=== PATIENT | male | born 1965 | race American Indian/Alaskan Native ===

== ENCOUNTER 2022-02-17 16:19 | Emergency (ER) | payer MEDICAID ==
[2022-02-17] MEDS ORDERED: HYDROcodone/ACETAMINOPHEN 7.5-325MG TAB PO ONE ×2 (17:59→21:00)
[2022-02-17] MEDS ORDERED: IBUPROFEN 600 MG TAB PO ONE ×2 (17:59→21:00)
[2022-02-17] MEDS ORDERED: ONDANSETRON 4 MG ODT TAB PO ONE ×2 (17:59→21:00)
[2022-02-17] MEDS ORDERED: predniSONE 20 MG TAB PO ONE ×2 (17:59→21:00)
--- NOTE | 2022-02-17 18:59 | Emergency Department Report ---
ED Back Pain/Injury HPI - General Chief Complaint: Back Pain/Injury Stated Complaint: BACK PAIN Source: patient Limitations: No Limitations - History of Present Illness Initial Comments: Patient is a 56-year-old -[place] male with a history of hypertension and hyperlipidemia who presents to the ED with acute onset persistent nontraumatic low back pain for the last 1 week. Patient states that the pain is constant and persistent and especially worse with movement. Patient describes the pain as spasmic and sometimes radiate to his lower extremities bilaterally. Patient denies fall, traumatic injury, heavy lifting, nausea and vomiting, dysuria, urinary frequency or urgency, penile discharge, testicular pain, numbness and tingling or weakness of lower extremities bilaterally, change in vi judy, chest pain or shortness of breath. MD Complaint: back pain (Low back pain) -: Sudden, week(s) (1) Similar Symptoms Previously: No Place: home Radiation: left leg, right leg Severity: severe Severity scale (0 -10): 7 Quality: sharp, aching Consistency: constant Improves With: other (Rest) Worsens With: movement, supine, walking Context: unknown Associated Symptoms: denies other symptoms, difficulty walking. denies: confusion, weakness, chest pain, numbness, cough, difficulty urinating, diaphoresis, incontinence, fever/chills, constipation, headaches, abdominal pain, loss of appetite, malaise, nausea/vomiting, seizure, shortness of breath, syncope, other Treatments Prior to Arrival: acetaminophen - Related Data Previous Rx's Medication Instructions Recorded Last Taken Type Ibuprofen [Motrin] 800 mg PO Q8HR PRN #30 tablet 02/17/22 Unknown Rx methOCARBAMOL [Robaxin TAB] 750 mg PO Q8H PRN #30 tab 02/17/22 Unknown Rx predniSONE [Deltasone] 60 mg PO QDAY #15 tab 02/17/22 Unknown Rx traMADoL [Ultram] 50 mg PO Q6HR PRN #12 tablet 02/17/22 Unknown Rx Allergies Allergy/AdvReac Type Severity Reaction Status Date / Time No Known Allergies Allergy Verified 02/17/22 16:40 ED Review of Systems ROS: Stated complaint: BACK PAIN Other details as noted in HPI Constitutional: denies: chills, fever Eyes: denies: eye pain, eye discharge, vision change ENT: denies: ear pain, throat pain Respiratory: denies: cough, shortness of breath, wheezing Cardiovascular: denies: chest pain, palpitations Endocrine: no symptoms reported Gastrointestinal: denies: abdominal pain, nausea, diarrhea Genitourinary: denies: urgency, dysuria, frequency, hematuria, testicular pain, testicular mass Musculoskeletal: back pain (Low back pain), arthralgia. denies: joint swelling Skin: denies: rash, lesions Neurological: denies: headache, weakness, paresthesias Psychiatric: denies: anxiety, depression Hematological/Lymphatic: denies: easy bleeding, easy bruising ED Past Medical Hx - Past Medical History Hx Hypertension: Yes Additional medical history: Hyperlipidemia - Medications Home Medications: Home Medications Medication Instructions Recorded Confirmed Last Taken Type Ibuprofen [Motrin] 800 mg PO Q8HR PRN #30 tablet 02/17/22 Unknown Rx methOCARBAMOL [Robaxin TAB] 750 mg PO Q8H PRN #30 tab 02/17/22 Unknown Rx predniSONE [Deltasone] 60 mg PO QDAY #15 tab 02/17/22 Unknown Rx traMADoL [Ultram] 50 mg PO Q6HR PRN #12 tablet 02/17/22 Unknown Rx ED Physical Exam - General Limitations: No Limitations General appearance: alert, in no apparent distress - Head Head exam: Present: atraumatic, normocephalic, normal inspection - Eye Eye exam: Present: normal appearance, PERRL, EOMI Pupils: Present: normal accommodation - ENT ENT exam: Present: normal exam, normal orophraynx, mucous membranes moist, TM's normal bilaterally, normal external ear exam - Neck Neck exam: Present: normal inspection, full ROM - Respiratory Respiratory exam: Present: normal lung sounds bilaterally. Absent: respiratory distress, wheezes, rhonchi, stridor, chest wall tenderness, accessory muscle use, decreased breath sounds, other - Cardiovascular Cardiovascular Exam: Present: regular rate, normal rhythm, normal heart sounds. Absent: systolic murmur, diastolic murmur, rubs, gallop - GI/Abdominal GI/Abdominal exam: Present: soft, normal bowel sounds. Absent: tenderness, guarding, rebound, hyperactive bowel sounds, hypoactive bowel sounds - Extremities Exam Extremities exam: Present: normal inspection, full ROM, normal capillary refill. Absent: tenderness - Back Exam Back exam: Present: normal inspection, full ROM, tenderness (Palpable lumbosacral paraspinal musculoskeletal tenderness), muscle spasm, paraspinal tenderness. Absent: CVA tenderness (R), CVA tenderness (L), vertebral tenderness - Neurological Exam Neurological exam: Present: alert, oriented X3, CN II-XII intact, normal gait, reflexes normal - Psychiatric Psychiatric exam: Present: normal affect, normal mood - Skin Skin exam: Present: warm, dry, intact, normal color. Absent: rash ED Course Vital Signs 02/17/22 16:36 Temperature 98.5 F Pulse Rate 86 Respiratory 16 Rate Blood Pressure 147/80 O2 Sat by Pulse 99 Oximetry ED Medical Decision Making - Medical Decision Making This is a 56-year-old -[place] male with a history of hypertension and hyperlipidemia who presents to the ED with acute onset persistent nontraumatic low back pain for the last 1 week. Patient states that the pain is constant and persistent and especially worse with movement. Patient describes the pain as spasmic and sometimes radiate to his lower extremities bilaterally. In the ED, patient is alert and oriented x3 and is not in any distress but appears to be in pain. Patient is hemodynamically stable. Patient was treated for pain in the ED since the pain that the patient experiences is nontraumatic but musculoskeletal. Patient was discharged home on pain medications and advised to follow-up with his primary care physician in 7 to 10 days for reevaluation or return to the ED immediately if symptoms get worse. - Differential Diagnosis Muscle spasm; muscle strain; lumbar radiculopathy; lumbosacral strain Critical care attestation.: If time is entered above; I have spent that time in minutes in the direct care of this critically ill patient, excluding procedure time. ED Disposition Clinical Impression: Spasm of muscle of lower back Acute low back pain with sciatica Qualifiers: Back pain laterality: unspecified Sciatica laterality: bilateral sciatica Qualified Code(s): M54.42 - Lumbago with sciatica, left side; M54.41 - Lumbago with sciatica, right side Sprain of lumbosacral ligament Qualifiers: Encounter type: initial encounter Qualified Code(s): S33.9XXA - Sprain of unspecified parts of lumbar spine and pelvis, initial encounter Disposition: HOME / SELF CARE / HOMELESS Is pt being admited?: No Does the pt Need Aspirin: No Condition: Stable Instructions: Muscle Cramps and Spasms, [id number], Sciatica, [id number], Radicular Pain, Lumbar Sprain Additional Instructions: Your symptoms are likely musculoskeletal muscle spasm or muscle strain of your lower back. Therefore take medications as needed for pain, drink plenty of fluids, follow-up with your primary care physician in 7 to 10 days for reevaluation. Return to the ED immediately if symptoms get worse. Prescriptions: predniSONE [Deltasone] 60 mg PO QDAY #15 tab Ibuprofen [Motrin] 800 mg PO Q8HR PRN #30 tablet PRN Reason: Pain , Severe (7-10) methOCARBAMOL [Robaxin TAB] 750 mg PO Q8H PRN #30 tab PRN Reason: Muscle Spasm traMADoL [Ultram] 50 mg PO Q6HR PRN #12 tablet PRN Reason: Pain Referrals: [facility] [Provider Group] - 3-5 Days Time of Disposition: 19:03 Print Language: ESTONIAN
[2022-02-17 20:50] VITALS: BP 178/89
== END 2022-02-17 21:14 | disposition home or self-care (01) ==
LOC: ED 16:19
DX: S33.5XXA Sprain of ligaments of lumbar spine, initial encounter (principal); M62.830 Muscle spasm of back; X58.XXXA Exposure to other specified factors, initial encounter; Y93.89 Activity, other specified; Y92.89 Other specified places as the place of occurrence of the external cause; Y99.8 Other external cause status
CPT/HCPCS: 99282; J3490; Q0162